=== PATIENT | female | born 1975 | race Caucasian/White ===

== ENCOUNTER → 2021-04-11 | Outpatient (CLI) | payer OTHER ==
[2014-04-27 09:40] VITALS: BP 135/78
[~2021-04-11] MED LIST: ELAG150T PO
== END ==
LOC: LAB 14:09
PROVIDERS: ATTEND Obstetrics & Gynecology
DX: Z01.812 Encounter for preprocedural laboratory examination (principal); U07.1 COVID-19
CPT/HCPCS: U0003; U0005

== ENCOUNTER 2021-06-22 06:03 | Day surgery (SDC) | payer OTHER ==
[2021-04-07 14:02] VITALS: BP 111/79
[~2021-06-22] VITALS: Ht 160 cm; Wt 72.7 kg
[~2021-06-22 06:03] MED LIST changes: +HYDROmorphone 2 MG/ML INJ. IVP PRN; +IV RINGERS,LACTATED 1000ML 1,000 ML IV SCH; +PROCHLORPERAZINE 10 MG/2 ML VIAL. IVP PRN; +fentaNYL PF VIAL 100 MCG/2 ML VIAL IVP PRN
[2021-06-22 06:22] VITALS: BP 113/69
[2021-06-22] MEDS ORDERED: PROPOFOL 10 MG/ML (20ML) VIAL. IV ONE (06:42)
[2021-06-22] MEDS ORDERED: ROCURONIUM 50 MG/5 ML VIAL. ONE (06:42)
[2021-06-22] MEDS ORDERED: ONDANSETRON PF 4 MG/2 ML VIAL. ONE (06:43)
[2021-06-22] MEDS ORDERED: fentaNYL PF VIAL 100 MCG/2 ML VIAL ONE (06:43)
[2021-06-22] MEDS ORDERED: DEXAMETHASONE SOD PHOS 4 MG/ML VIAL ONE (06:43)
[2021-06-22] MEDS ORDERED: SEVOFLURANE 61 TO 120 MINUTES. IH ONE (06:51)
[2021-06-22] MEDS ORDERED: KETAMINE HCL IN NACL, ISO-OSM 50 MG/5 ML SYRINGE ONE (06:52)
[2021-06-22] MEDS ORDERED: VASOPRESSIN 20 UNIT/ML VIAL. ONE (06:58)
[2021-06-22] MEDS ORDERED: METHYLENE BLUE 0.5% 10ml AMPULE. ONE (06:58)
[2021-06-22] MEDS ORDERED: BUPIVACAINE-EPI 0.25% 30 ML VIAL KIT. ONE (06:58)
[2021-06-22] MEDS ORDERED: GLYCOPYRROLATE 1 MG/5 ML VIAL. ONE ×2 (07:52→09:27)
[2021-06-22] MEDS ORDERED: PHENYLEPHRINE in 0.9% NACL PF 1 MG/10 ML SYRINGE. IV ONE (07:53)
[2021-06-22] MEDS ORDERED: NEOSTIGMINE METHYLSULFATE 5 MG/5 ML SYRINGE. ONE (07:53)
[2021-06-22] MEDS ORDERED: KETOROLAC 30 MG/ML VIAL. ONE ×2 (08:05→09:07)
[2021-06-22 08:29] LABS: BASO # 0.1 x10^3/uL (0.0-0.2); BASO % 1 % (0-3); EOS # 0.1 x10^3/uL (0.0-0.7); EOS % 1 % (0-3); HEMATOCRIT 38.1 % (36.0-47.0); HEMOGLOBIN 12.4 g/dL (12.0-15.5); LYMPH # 2.6 x10^3/uL (1.0-4.8); LYMPH % 28 % (24-48); MEAN CORPUSCULAR HEMOGLOBIN 29 pg (25-35); MEAN CORPUSCULAR HGB CONC 33 g/dL (31-37); MEAN CORPUSCULAR VOLUME 88 fL (79-100); MONO % 10 % (0-9); NEUT # 5.8 x10^3/uL (1.8-7.7); NEUT % 61 % (31-73); PLATELET COUNT 272 x10^3/uL (140-400); RED BLOOD COUNT 4.33 x10^6/uL (3.50-5.40); RED CELL DISTRIBUTION WIDTH 14.2 % (11.5-14.5); WHITE BLOOD COUNT 9.6 x10^3/uL (4.0-11.0)
[2021-06-22] MEDS ORDERED: SUGAMMADEX SODIUM 200 MG/2 ML VIAL. IVP ONE (08:45)
--- NOTE | 2021-06-22 08:57 | PDOC4 ---
BRIEF OPERATIVE NOTE Date: Jun 22, 2021 Pre-Op Diagnosis pelvic pain, menorrhagia Post-Op Diagnosis same plus mild adhesive disease on left side Procedure Performed operative scope, lysis of adhesions and left ovarian cystectomy, then hysteroscopy D&C with novasure endometrial ablation Surgeon Dr. Robertson Inspector Scales FLAQUITO Rosas Anesthesiologist Dr. Chacko Anesthesia Type: General Blood Loss 20cc IV Fluid 850cc Urine Output 50cc straight cath prior to procedure Specimens Obtained left ovarian cyst wall and endometrial currettings Findings enlarged RV uterus likely adenomyosis; left sided bowel adhesions to sidewall near IP and to left round ligament also; 2 cysts on left ovary; uterus sounded to 8.5-9cm with tissue only, grossly normal cavity otherwise (novasure L 6.0, W 4.4 time 69 seconds for the ablation) Complications none Operative Note [id number] AMBER ROBERTSON MD Jun 22, 2021 08:57
[2021-06-22] MEDS ORDERED: NALOXONE 0.4 MG/ML VIAL. IV PRN (09:00)
[2021-06-22] MEDS ORDERED: diphenhydrAMINE HCL 25 MG CAPSULE PO PRN (09:00)
[2021-06-22] MEDS ORDERED: CALCIUM CARBONATE 500 MG TAB.CHEW PO PRN (09:00)
[2021-06-22] MEDS ORDERED: MAG HYDROX/ALUMINUM HYD/SIMETH 30 ML ORAL.SUSP PO PRN (09:00)
[2021-06-22] MEDS ORDERED: SIMETHICONE 80 MG TAB.CHEW PO PRN (09:00)
[2021-06-22] MEDS ORDERED: diphenhydrAMINE 50 MG/ML VIAL IV PRN (09:00)
[2021-06-22] MEDS ORDERED: HYDROcodone/APAP 5/325MG 1 TAB TABLET PO PRN (09:00)
[2021-06-22] MEDS ORDERED: 0.9 % SODIUM CHLORIDE 10 ML DISP.SYRIN. IV PRN (09:00)
[2021-06-22] MEDS ORDERED: MORPHINE SULFATE 2 MG/ML INJ. ONE (09:03)
[2021-06-22] MEDS: MORPHINE SULFATE 2 MG/ML INJ. IVP PRN ×2 (09:11→09:35)
[2021-06-22] MEDS ORDERED: KETOROLAC 30 MG/ML VIAL. IVP ONE (09:30)
[2021-06-22] MEDS ORDERED: GLYCOPYRROLATE 1 MG/5 ML VIAL. IV ONE (09:30)
[2021-06-22] MEDS ORDERED: HYDROmorphone 2 MG/ML INJ. ONE (09:31)
--- NOTE | 2021-06-22 09:43 | EKG ---
[facility] [address] [place] [address] Test Date: 2021-06-22 Test Time: 09:35:56 Pat Name: VERONICA ROJAS Department: Room: Gender: F [employer] Team Member: LUCRECIA : 1975 Requested By: DIMITRIOS WILBURN Order Number: [id number] Reading MD: Pedro Morton Measurements Intervals [place] Rate: 62 P: 59 IA: 204 QRS: 36 QRSD: 84 T: 39 QT: 456 QTc: 465 Interpretive Statements SINUS RHYTHM NORMAL ECG RI6.02 No previous ECG available for comparison Electronically Signed On 06-30-2021 14:24:17 CDT by Pedro Morton
[2021-06-22 10:09] VITALS: BP 100/71
--- NOTE | 2021-06-22 14:05 | OP ---
DATE OF SURGERY: 06/22/2021 PREOPERATIVE DIAGNOSIS: Pelvic pain and menorrhagia. POSTOPERATIVE DIAGNOSIS: Pelvic pain and menorrhagia with some mild adhesive disease on the left side. PROCEDURE: Operative laparoscopy, lysis of adhesions, left ovarian cystectomy and also a hysteroscopy, D and C with MyoSure, endometrial ablation. SURGEON: Tonia Luque MD. TIMERS INSPECTOR: FLAQUITO Solis. URINE OUTPUT: 50 mL straight cath prior to procedure. IV FLUIDS: 850 mL. BLOOD LOSS: 20 mL. FINDINGS: She had an 8.5-9 cm uterus with just abundant tissue in it. The cavity was otherwise grossly normal. On laparoscopy, right upper quadrant and bowel were grossly normal. She did have left-sided colon adhesions to the left sidewall and down to the IP ligament. She also had colon adhesions to the left round ligament. Under the uterus was clear. No obvious endometriosis, but she had an enlarged retroverted bulbous uterus consistent with adenomyosis. Right tube and ovary were normal. Left tube was normal, just 2 cysts on the left ovary that looked functional, but nonetheless there, so both cysts were drained and removed and left ovarian cyst wall was peeled off for permanent pathology. Also, the D and C was sent for endometrial curettings as far as pathology. DESCRIPTION OF PROCEDURE: This patient was taken to the operating room where general anesthesia was placed. The patient was placed in dorsal lithotomy position in Parker stirrups. Abdomen and vagina were both prepped and draped in the normal sterile fashion and a straight cath urine was done prior to my arrival. Upon my arrival, a timeout was performed. Once everyone agreed on the patient, the site, the procedure, the procedure was initiated. A bivalve speculum was placed in the patient's vagina. A single-tooth tenaculum was used to grasp the anterior lip of the cervix. It was dilated to an 8/9 with Hegar dilators and sounded to 8.5-9 cm. At this point, the Valtchev uterine manipulator was placed through the endocervical left eye, locked on the single tooth tenaculum and the bivalve speculum was then removed. Top gloves were discarded and changed. Attention was then turned to the abdomen where a small infraumbilical skin incision was made with the scalpel. It was first injected with 0.25% Marcaine with epinephrine. A small incision was made, curved Jaylene was used to dissect through the subcuticular layer to the fascia. The 5 mm Visiport was used to directly into the abdominal cavity. Opening patient pressure was 3 mmHg. Carbon dioxide gas was used to appropriately insufflate the abdominal cavity to maintain a pressure of 15 mmHg and direct abdominal placement was confirmed via the laparoscope. Overhead lights were dimmed. The patient was placed in Trendelenburg position. Initially, a suprapubic port was placed after injecting with local making a small incision and placing the 5 mm trocar and under direct visualization. I did move the camera to look at the umbilical port. It was clear. At this point, I used a probe to examine it with all of the above findings. It was decided to put a right lower quadrant port in under direct visualization as well, first transilluminating the abdominal wall, finding an area clear of any vasculature injecting with the 0.25% Marcaine with epinephrine and then making a small incision and placing in under direct visualization. The [place] was used for traction and then the LigaSure monopolar hook was used to take down on the peritoneal side all of the adhesions and peeled them off both the round ligament on the left and the left pelvic side wall with excellent results. Left tube and ovary were elevated. Two cysts on the left ovary. The monopolar hook was used to open up the cyst and then the [place] was used to peel out the cyst wall and passed it off for permanent pathology. Once the ovarian cyst marion were cleared, Floyd was placed over this for excellent results and the left sidewall that the left sidewall was completely hemostatic, but I just used it, but Floyd was placed over the left ovary where the cyst wall had been removed. Again, the right side was normal. Right upper quadrant was grossly normal. So, the suprapubic port and right lower quadrant ports were removed after irrigation assuming they were dry, putting the Floyd on the left ovary. The suprapubic and right lower quadrant ports were removed under direct visualization, they were hemostatic. Gas was released from the umbilical port. All 3 port sites were closed with 4-0 nylon at the level of the skin. At this point, attention was turned vaginally. At this point, the Valtchev was removed. A weighted speculum was placed in the patient's vagina. The hysteroscopy was set up and right balanced. Placing the hysteroscope in, there was no obvious uterine abnormalities and shape or fibroids, just an abundant amount of fluffy red and white tissue. So a sharp curetting was done to pass off some tissue for permanent pathology of the endometrial curettings. Once this was done, the NovaSure was obtained. The length was set at 6. The width settled at 4.4. The device was enabled. It passed the cavity assessment check, went straight into the ablation process, which lasted 69 seconds. Once the ablation was done, the device was removed. The tenaculum was removed to make sure there was no bleeding. Once all of this was assured, the procedure was ended. All sponge, lap and needle counts were correct x 2 by OR personnel. The patient was awakened from anesthesia and brought to recovery room in stable condition. KELLY/GILBERT/RONNY DR: Kaylene TID: [id number]
--- NOTE | 2021-06-29 07:35 | PDOC ---
Provider Note Date of Service: DATE: 06/29/21 TIME: 07:31 Provider Note Ketamine 20 mg were wasted 30mg given in surgery 06/22/21 Justifications for Admission Other Justification VANESSA ELAINE CRNA Jun 29, 2021 07:35
--- NOTE | 2021-07-01 11:11 | PATHOLOGY ---
[facility] Accession Number: [id number] . 01 Material submitted: . PART A: ovary - LEFT OVARIAN CYST. Modifiers: left PART B: endometrium - ENDOMETRIAL CURETTINGS . 01 Clinical history: . ENDOMETRIOSIS . 02 Diagnosis: A. Ovary (left ovarian cyst): - Cellular stroma and hemorrrahge suspicious for endometrioma . B. Endometrium (curettage): - Disordered proliferative endometrium with fragments of endometrial polyp with focal infarct. . (SWK:emma; 06/29/2021) MBR 06/29/2021 1344 Local . 02 Comment: Although we do not see glandular structures in the ovarian cyst wall it shows what looks to be endometrial stromal tissue consistent with endometriosis. CD10 performed on block A1 decorates blood vessels contained within ovarian stroma. . The case is seen in consultation with Dr. Larissa Banuelos who agrees with this diagnosis on 06/28/2021. (BELKISK:emma; 06/29/2021) . 02 Electronically signed: . Armani Rojas MD, Pathologist NPI- [id number] . 01 Gross description: . A. The specimen is received in formalin, labeled "Juliana Barriga, left ovarian cyst". Received are multiple, miranda-pink, membranous, irregularly-shaped pieces of soft tissue, ranging in size from 0.6-1.0 cm, in greatest dimension. The specimen is entirely submitted in cassette A1. . B. The specimen is received in formalin, labeled "Juliana Barriga, endometrial curettings". Received is a 2.0 x 1.5 x 0.4 cm aggregate of miranda-brown, soft tissue fragments, admixed with clotted hemorrhagic material. The specimen is filtered and entirely submitted cassette B1. (GREG; 06/23/2021) JGG/JGG 06/23/2021 1412 Local . 02 Pathologist provided ICD-10: N84.0, N85.8 . 02 CPT . 344164, 362019, S31672 Specimen Comment: A courtesy copy of this report has been sent to [phone], [phone] Specimen Comment: [id number] Specimen Comment: Report sent to / DR EDMOND Specimen Comment: A duplicate report has been generated due to demographic updates. Performed at: [facility] [address] [id number] MD Hunter Ellis MD Phone: [phone] Performed at: [address] [id number] MD Armani Rojas MD Phone: [phone]
== END 2021-06-22 10:28 | disposition home or self-care (01) ==
LOC: SURG 06:03
PROVIDERS: ATTEND Obstetrics & Gynecology
DX: N92.0 Excessive and frequent menstruation with regular cycle (principal); N83.202 Unspecified ovarian cyst, left side; N84.0 Polyp of corpus uteri; K21.9 Gastro-esophageal reflux disease without esophagitis; F41.9 Anxiety disorder, unspecified; F32.9 Major depressive disorder, single episode, unspecified; Z79.899 Other long term (current) drug therapy; Z98.890 Other specified postprocedural states; Z72.89 Other problems related to lifestyle
CPT/HCPCS: 36415; 58563; 58662; 81025; 85025; 88305; 88342; 93005; A4930; A6402; J1100; J1170; J1885; J2270; J2370; J2405; J2704; J2710; J3010; J3490; Q9968